=== PATIENT | male | born 1980 | race Caucasian/White ===

== ENCOUNTER 2020-07-20 07:04 | Day surgery (SDC) | payer OTHER ==
[2020-07-15 11:15] VITALS: BMI 26.5
--- NOTE | 2020-07-19 13:48 | HP ---
HISTORY OF PRESENT ILLNESS: Mr. Phelps is a 39-year-old man, who is known to us for prior lumbar decompression back in the summer time of this year, who returns now with bilateral carpal tunnel syndrome and hopes to have this corrected. This has actually been diagnosed [facility] by Dr. Elaine for some time. His preference would actually be to take care of both hands at the same time if at all possible. PAST MEDICAL HISTORY: Significant for chronic pain syndrome. PAST SURGICAL HISTORY: Lumbar decompression. CURRENT MEDICATIONS: Gabapentin. ALLERGIES: NO KNOWN DRUG ALLERGIES. PHYSICAL EXAMINATION: The patient is alert and oriented x3. Gait is normal. No ataxia. He does have a positive Tinel's bilaterally to the right and left wrist. ASSESSMENT: Bilateral carpal tunnel syndrome. PLAN: Dr. Richard met with the patient, reviewed his electrophysiologic studies and advocated for bilateral carpal tunnel release. He explained the patient risks, benefits, and alternatives to the procedure. The patient expressed understanding and would like to move forward with surgery as discussed. I do believe the patient is mentally competent and capable of making medical decisions for himself. We will move forward with surgery as planned. Job ID: [id number]
[2020-07-20] MEDS ORDERED: Lidocaine 1% w/Epinephrine 1:100K 20 ML VIAL ONE (08:25)
[2020-07-20] MEDS ORDERED: Midazolam HCl 2 mg/2 ml Vial ONE (08:32)
[2020-07-20] MEDS ORDERED: Fentanyl 100 MCG/2 ML VIAL ONE (08:33)
[2020-07-20] MEDS ORDERED: Ondansetron PF 4 MG/2 ML Vial ONE (09:08)
[2020-07-20] MEDS ORDERED: EPHEDRINE 25 MG/5 ML SYRINGE ONE (09:08)
[2020-07-20] MEDS ORDERED: Lidocaine 1% PF 5 ML VIAL ONE (09:08)
[2020-07-20] MEDS ORDERED: Ketorolac Tromethamine 30 MG/ML VIAL ONE (09:08)
[2020-07-20] MEDS ORDERED: Dexamethasone 20 MG/5 ML VIAL ONE (09:08)
[2020-07-20] MEDS ORDERED: PROPOFOL 200 MG/20 ML VIAL ONE (09:08)
--- NOTE | 2020-07-21 08:43 | OP ---
DATE OF PROCEDURE: 07/20/2020 OFFSHORING MANAGER: Refugio Moreno PA-C INDICATION: Pain. DIAGNOSIS: Bilateral carpal tunnel syndrome. PROCEDURES PERFORMED: 1. Right carpal tunnel release. 2. Left carpal tunnel release. ANESTHESIA: General. DESCRIPTION OF PROCEDURE: The patient was brought into the operating room and placed under general anesthesia. He was placed on table in supine position with both arms extended perpendicular from his body. Both hands and wrists were prepped up to the level of the axilla. They were prepped and draped. We started on the patient's right hand first, where a linear incision was planned along the crease of the wrist in line with the long axis of the 4th digit. This area was infiltrated locally in the subcutaneous space. An incision was then performed and a self-retaining retractor placed. The carpal tunnel ligament was identified and incised. The incision was extended in proximal and distal directions until the carpal tunnel elements were decompressed. The wound was copiously irrigated. Hemostasis was maintained throughout. The wound was closed in a single-layer technique. The procedure then was redirected to the left side, where a linear incision was planned across the crease in the wrist in line with the long axis of the 4th digit. Again, an incision was performed on the left side and a self-retaining retractor was placed. The carpal tunnel ligament was identified and incised. The incision was extended in proximal and distal directions until the elements of the carpal tunnel were decompressed. That wound was also irrigated. Hemostasis was maintained. The incision was closed in a single-layer technique. Both incisions were closed and the procedures came to an end without any known complications. Job ID: [id number]
== END 2020-07-20 11:35 | disposition home or self-care (01) ==
LOC: SDC 07:04
PROVIDERS: ATTEND Neurological Surgery
PROC: 01N50ZZ Release Median Nerve, Open Approach (ICD-10-PCS; principal; 2020-07-20)
DX: G56.03 Carpal tunnel syndrome, bilateral upper limbs (principal); G89.4 Chronic pain syndrome
CPT/HCPCS: J0690; J1100; J1885; J2250; J2405; J2704; J3010